=== PATIENT | female | born 1965 | race Caucasian/White ===

== ENCOUNTER → 2016-03-13 | Outpatient (CLI) | payer OTHER ==
--- NOTE | 2016-03-13 09:40 | CT ---
EXAMINATION TYPE: CT chest wo con DATE OF EXAM: 03/13/2016 8:56 AM COMPARISON: September 23, 2010 HISTORY: Patient complains of known lung nodule follow up with a history of histoplasmosis. CT DLP: [address] of the chest was performed with lung and mediastinal window settings submitted. The la ck of contrast limits evaluation of the vascular, mediastinal and parenchymal structures including th e upper abdomen. LUNGS: The lungs are clear and free of infiltrate. No atelectasis. No suspicious pulmonary nodule or mass is detected. Calcified granuloma lateral segment right middle lobe. No pleural effusion. No C T evidence of interstitial lung disease. MEDIASTINUM/MARK: Thoracic aorta is of normal caliber with limited evaluation given lack of contrast . The heart is not enlarged. No evidence for mediastinal mass. No lymph nodes greater than 1cm. C alcified hilar and mediastinal lymph nodes. UPPER ABDOMEN: No significant abnormality is seen. OTHER: No significant other abnormality. IMPRESSION: 1. Evidence of remote granulomatous disease. Examination is otherwise unremarkable.
== END | disposition home or self-care (01) ==
LOC: RADCTMAIN 08:08
PROVIDERS: ATTEND Family Medicine
DX: R06.02 Shortness of breath (principal)
CPT/HCPCS: 71250